=== PATIENT | male | born 1945 | race Caucasian/White ===

== ENCOUNTER 2023-04-20 14:33 | Observation (INO) | payer OTHER ==
--- OUTSIDE RECORDS SUMMARY | 2023-04-20 14:37 | XMS REPORT | Continuity of Care Document ---
:1945 Author Organization [facility] t Address [address] [facility] [address] [place] [address] Care Team Providers Name Role Phone Ching JIMENEZ, Bronson Aguiar Primary Care Physician [phone] Keith JIMENEZ, Mikie Garcia Attending Clinician Payers Payer Name Policy Type Policy Number Effective Date Expiration Date S ource Problems This patient has no known problems. Allergies, Adverse Reactions, Alerts This patient has no known allergies or adverse reactions. Family History Family Member Diagnosis Comments Start Date Stop Date Source Natural father Aneurysm [facility] father Lung cancer [facility] Social History Social Habit Start Date Stop Date Quantity Comments Source History of tobacco Cigarette Smoker [facility] Tobacco use and 2022-04-22 2022-04-22 Smokeless tobacco [facility] exposure 00:[facility]:00 [facility]:00:00 non-user Hospital Alcohol intake 2022-04-22 2022-04-22 Current drinker of [facility] 00:00:00 00:00:00 alcohol (finding) Hospita l History of Social 2022-04-22 2022-04-[address] function 00:00:00 00:00:00 Hospital Alcohol Comment 2022-04-22 2022-04-22 ocasionally [facility] 00:00:00 00:00:00 Hospital Sex Assigned At [birth year] [facility] 00[facility] Smoking Status Start Date Stop Date Source Ex-smoker 2022-04-22 00:00:00 2022-04-22 00:00:00 Method t [facility] Medications Ordered Filled Start Stop Current Ordering Indication Dosage Frequency Signature Comments Components Source Medication Medication Date Date Medication? Clinician (SIG) Name Name aspirin 2021-06 No 81mg QD Take 1 [facility] (ECOTRIN) 15 15 tablet (81 st 81 MG 10:57: 00:00 mg total) [facility] 21 :00 by mouth l coated daily. tablet aspirin 2021-06 No 81mg QD Take 1 [facility] (ECOTRIN) 15 15 tablet (81 st 81 MG 10:57: 00:00 mg total) Hospit [facility] 21 :00 by mouth l coated daily. tablet aspirin 2021-06 No 81mg QD Take 1 [facility] (ECOTRIN) 07-0515 tablet (81 st 81 MG 10:57: 00:00 mg total) [facility] 21 :00 by mouth l coated daily. tablet aspirin 2021-06 No 81mg QD Take 1 [facility] (ECOTRIN) 07-0515 tablet (81 st 81 MG 10:57: 00:00 mg total) Hospit [facility] 21 :00 by mouth l coated daily. tablet aspirin 2021-06 No 81mg QD Take 1 [facility] (ECOTRIN) 07-0515 tablet (81 st 81 MG 10:57: 00:00 mg total) Hospit [facility] 21 :00 by mouth l coated daily. tablet aspirin 2021-06 No 81mg QD Take 1 [facility] (ECOTRIN) 07-0515 tablet (81 st 81 MG 10:57: 00:00 mg total) Hospit [facility] 21 :00 by mouth l coated daily. tablet aspirin 2021-06 No 81mg QD Take 1 [facility] (ECOTRIN) 15 -15 tablet (81 st 81 MG 10:57: 00:00 mg total) Hospit [facility] 21 :00 by mouth l coated daily. tablet simvastatin 2021-06 Yes 40mg QD Take 1 Meth am[facility] (ZOCOR) 40 -02 tablet (40 st mg tablet 11:14: mg total) Hos jonathan 10 by mouth l nightly. folic acid 2021-06 Yes 800ug QD Take 2 [facility] (FOLVITE) 1-[address] 400 MCG 11:14: (800 mcg Hospit a tablet 10 total) by l mouth daily. omega 2021-06 Yes 1000mg QD Take 1,000 [facility] 3-dha-epa-f 1-[address] issa oil 11:14: mouth Hospita (Fish OiL) 10 daily. l 1,000 mg (120 mg-180 mg) capsule simvastatin 2021-06 Yes 40mg QD Take 1 [facility] (ZOCOR) 40 1-02 tablet (40 st mg tablet 11:14: mg total) Hos jonathan 10 by mouth l nightly. folic acid 2021-06 Yes 800ug QD Take 2 [facility] (FOLVITE) 1-[address] 400 MCG 11:14: (800 mcg Hospit a tablet 10 total) by l mouth daily. omega 2021-06 Yes 1000mg QD Take 1,000 Meth [facility] 3-dha-epa-f 1-[address] issa oil 11:14: mouth Hospita (Fish OiL) 10 daily. l 1,000 mg (120 mg-180 mg) capsule simvastatin 2021-06 Yes 40mg QD Take 1 [facility] (ZOCOR) 40 1-02 tablet (40 st mg tablet 11:14: mg total) Hos jonathan 10 by mouth l nightly. folic acid 2021-06 Yes 800ug QD Take 2 Meth [facility] (FOLVITE) 1-[address] 400 MCG 11:14: (800 mcg Hospit a tablet 10 total) by l mouth daily. omega 2021-06 Yes 1000mg QD Take 1,000 Meth amelia 3-dha-epa-f 1-[address] issa oil 11:14: mouth Hospita (Fish OiL) 10 daily. l 1,000 mg (120 mg-180 mg) capsule simvastatin 2021-06 Yes 40mg QD Take 1 Meth am[facility] (ZOCOR) 40 1-02 tablet (40 st mg tablet 11:14: mg total) Hos jonathan 10 by mouth l nightly. folic acid 2021-06 Yes 800ug QD Take 2 Meth [facility] (FOLVITE) 1-[address] 400 MCG 11:14: (800 mcg Hospit a tablet 10 total) by l mouth daily. omega 2021-06 Yes 1000mg QD Take 1,000 Meth amelia 3-dha-epa-f 1-[address] issa oil 11:14: mouth Hospita (Fish OiL) 10 daily. l 1,000 mg (120 mg-180 mg) capsule simvastatin 2021-06 Yes 40mg QD Take 1 [facility] (ZOCOR) 40 1-02 tablet (40 st mg tablet 11:14: mg total) Hos jonathan 10 by mouth l nightly. folic acid 2021-06 Yes 800ug QD Take 2 Meth am[facility] (FOLVITE) 1-[address] 400 MCG 11:14: (800 mcg Hospit a tablet 10 total) by l mouth daily. omega 2021-06 Yes 1000mg QD Take 1,000 Meth amelia 3-dha-epa-f 1-[address] issa oil 11:14: mouth Hospita (Fish OiL) 10 daily. l 1,000 mg (120 mg-180 mg) capsule simvastatin 2021-06 Yes 40mg QD Take 1 Meth amelia (ZOCOR) 40 1-02 tablet (40 st mg tablet 11:14: mg total) Hos jonathan 10 by mouth l nightly. folic acid 2021-06 Yes 800ug QD Take 2 Meth amelia (FOLVITE) 1-[address] 400 MCG 11:14: (800 mcg Hospit a tablet 10 total) by l mouth daily. omega 2021-06 Yes 1000mg QD Take 1,000 Meth amelia 3-dha-epa-f 1-[address] issa oil 11:14: mouth Hospita (Fish OiL) 10 daily. l 1,000 mg (120 mg-180 mg) capsule simvastatin 2021-06 Yes 40mg QD Take 1 Meth amelia (ZOCOR) 40 1-02 tablet (40 st mg tablet 11:14: mg total) Hos jonathan 10 by mouth l nightly. folic acid 2021-06 Yes 800ug QD Take 2 Meth am[facility] (FOLVITE) 1-[address] 400 MCG 11:14: (800 mcg Hospit a tablet 10 total) by l mouth daily. omega 2021-06 Yes 1000mg QD Take 1,000 Meth amelia 3-dha-epa-f 1-[address] issa oil 11:14: mouth Hospita (Fish OiL) 10 daily. l 1,000 mg (120 mg-180 mg) capsule losartan-hy 2021-06 Yes 1{tbl} QD 1 tablet [facility] drochloroth 0-[address] iazide 00:00: Hospita (HYZAAR) 00 l 100-25 mg per tablet losartan-hy 2021-06 Yes 1{tbl} QD 1 tablet [facility] drochloroth 0-[address] iazide 00:00: Hospita (HYZAAR) 00 l 100-25 mg per tablet losartan-hy 2021-06 Yes 1{tbl} QD 1 tablet [facility] drochloroth 0-[address] iazide 00:00: Hospita (HYZAAR) 00 l 100-25 mg per tablet losartan-hy 2021-06 Yes 1{tbl} QD 1 tablet [facility] drochloroth 0-[address] iazide 00:00: Hospita (HYZAAR) 00 l 100-25 mg per tablet losartan-hy 2021-06 Yes 1{tbl} QD 1 tablet [facility] drochloroth 0-[address] iazide 00:00: Hospita (HYZAAR) 00 l 100-25 mg per tablet losartan-hy 2021-06 Yes 1{tbl} QD 1 tablet [facility] drochloroth 0-[address] iazide 00:00: Hospita (HYZAAR) 00 l 100-25 mg per tablet losartan-hy 2021-06 Yes 1{tbl} QD 1 tablet [facility] drochloroth 0-[address] iazide 00:00: Hospita (HYZAAR) 00 l 100-25 mg per tablet metoprolol 2022-0 Yes 50mg QD 1 tablet Met hodi tartrate 9-13 ([address] (LOPRESSOR) 00:00: total) Hosp sandi 50 mg 00 daily. l tablet metoprolol 2022-0 Yes 50mg QD 1 tablet Met hodi tartrate 9-13 ([address] (LOPRESSOR) 00:00: total) Hosp sandi 50 mg 00 daily. l tablet metoprolol 2022-0 Yes 50mg QD 1 tablet Met hodi tartrate 9-13 ([address] (LOPRESSOR) 00:00: total) Hosp sandi 50 mg 00 daily. l tablet metoprolol 2022-0 Yes 50mg QD 1 tablet Met hodi tartrate 9-13 ([address] (LOPRESSOR) 00:00: total) [facility]osp [facility]i 50 mg 00 daily. l tablet metoprolol 2-0 Yes 50mg QD 1 tablet Met hodi tartrate 9-13 ([address] (LOPRESSOR) 00:00: total) [facility]osp [facility]i 50 mg 00 daily. l tablet metoprolol 2022-0 Yes 50mg QD 1 tablet Met hodi tartrate 9-13 ([address] (LOPRESSOR) 00:00: total) Hosp [facility]i 50 mg 00 daily. l tablet metoprolol 2022-0 Yes 50mg QD 1 tablet Met hodi tartrate 9-13 ([address] (LOPRESSOR) 00:00: total) Hosp sandi 50 mg 00 daily. l tablet Vital Signs Vital Name Observation Time Observation Value Comments Source Systolic blood 2022-04-22 19:51:00 148 mm[Hg] [facility] pressure Diastolic blood 2022-04-22 19:51:00 71 mm[Hg] [facility] pressure Heart rate 2022-04-22 19:51:00 80 /min [facility] Body height 2022-04-22 16:09:00 177.8 cm [facility] Body weight 2022-04-22 16:09:00 94.348 kg [facility] BMI 2022-04-22 16:09:00 29.84 kg/m2 [facility] Oxygen saturation in 2022-04-22 16:09:00 96 /min [facility] Arterial blood by Pulse oximetry Procedures Procedure Date / Time Performed Performing Clinician Sour e TTE COMPLETE, WO 2022-04-22 20:00:00 [facility] CONTRAST, W DOPPLER ([id number]) ECG 12-LEAD 2022-04-22 16:26:33 [facility] Plan of Care Planned Activity Planned Date Details Comments Source Future Scheduled 2023-04-18 COVID-19 VACCINE (#1) [facility] Test 11:21:50 [code = COVID-19 VACCINE (#1)] Future Scheduled 2023-04-18 65+ PNEUMOCOCCAL [facility] Test 11:21:50 VACCINE (1 - PCV) [code = 65+ PNEUMOCOCCAL VACCINE (1 - PCV)] Future Scheduled 2023-04-18 Hepatitis C screening [facility] Test 11:21:50 (procedure) [code = 725863146] Future Scheduled 2023-04-18 SHINGLES VACCINES (1 Met [facility] Test 11:21:50 of 2) [code = SHINGLES VACCINES (1 of 2)] Future Scheduled 2023-04-18 INFLUENZA VACCINE (#1) [facility] Test 11:21:50 [code = INFLUENZA VACCINE (#1)] Future Scheduled 2023-04-04 COVID-19 VACCINE (#1) [facility] Test 15:27:53 [code = COVID-19 VACCINE (#1)] Future Scheduled 2023-04-04 65+ PNEUMOCOCCAL [facility] Test 15:27:53 VACCINE (1 - PCV) [code = 65+ PNEUMOCOCCAL VACCINE (1 - PCV)] Future Scheduled 2023-04-04 Hepatitis C screening [facility] Test 15:27:53 (procedure) [code = 855975888] Future Scheduled 2023-04-04 SHINGLES VACCINES (1 Met [facility] Test 15:27:53 of 2) [code = SHINGLES VACCINES (1 of 2)] Future Scheduled 2023-04-04 RSV VACCINES > 60 YR Met [facility] Test 15:27:53 (1 - 1-dose 60+ series) [code = RSV VACCINES > 60 YR (1 - 1-dose 60+ series)] Future Scheduled 2023-04-04 INFLUENZA VACCINE (#1) [facility] Test 15:27:53 [code = INFLUENZA VACCINE (#1)] Future Scheduled 2022-07-06 COVID-19 VACCINE (#1) [facility] Test 16:55:36 [code = COVID-19 VACCINE (#1)] Future Scheduled 2022-07-06 Hepatitis C screening [facility] Test 16:55:36 (procedure) [code = [id number]] Future Scheduled 2022-07-06 SHINGLES VACCINES (1 Met [facility] Test 16:55:36 of 2) [code = SHINGLES VACCINES (1 of 2)] Future Scheduled 2022-07-06 65+ PNEUMOCOCCAL [facility] Test 16:55:36 VACCINE (1 - PCV) [code = 65+ PNEUMOCOCCAL VACCINE (1 - PCV)] Future Scheduled 2022-07-06 INFLUENZA VACCINE Method [facility] Test 16:55:36 [code = INFLUENZA VACCINE] Future Scheduled 2022-06-25 COVID-19 VACCINE (#1) [facility] Test 11:57:11 [code = COVID-19 VACCINE (#1)] Future Scheduled 2022-06-25 [facility] Test 11:57:11 (procedure) [code = [id number]] Future Scheduled 2022-06-25 SHINGLES VACCINES (1 Met [facility] Test 11:57:11 of 2) [code = SHINGLES VACCINES (1 of 2)] Future Scheduled 2022-06-25 65+ PNEUMOCOCCAL [facility] Test 11:57:11 VACCINE (1 - PCV) [code = 65+ PNEUMOCOCCAL VACCINE (1 - PCV)] Future Scheduled 2022-06-25 INFLUENZA VACCINE [facility] Test 11:57:11 [code = INFLUENZA VACCINE] Future Scheduled 2022-06-25 COVID-19 VACCINE (#[facility]) [facility] Test 11:57:11 [code = COVID-19 VACCINE (#1)] Future Scheduled 2022-06-25 [facility] Test 11:57:11 (procedure) [code = [id number]] Future Scheduled 2022-06-25 SHINGLES VACCINES (1 Met [facility] Test 11:57:11 of 2) [code = SHINGLES VACCINES (1 of 2)] Future Scheduled 2022-06-25 65+ PNEUMOCOCCAL [facility] Test 11:57:11 VACCINE (1 - PCV) [code = 65+ PNEUMOCOCCAL VACCINE (1 - PCV)] Future Scheduled 2022-06-25 INFLUENZA VACCINE Method [facility] Test 11:57:11 [code = INFLUENZA VACCINE] Future Scheduled 2022-06-12 SHINGLES VACCINES (1 Met [facility] Test 08:42:58 of 2) [code = SHINGLES VACCINES (1 of 2)] Future Scheduled 2022-06-12 65+ PNEUMOCOCCAL [facility] Test 08:42:58 VACCINE (1 - PCV) [code = 65+ PNEUMOCOCCAL VACCINE (1 - PCV)] Future Scheduled 2022-06-12 INFLUENZA VACCINE Method ist Hospital Test 08:42:58 [code = INFLUENZA VACCINE] Future Scheduled 2022-06-12 COVID-19 [facility]ACCINE (#[facility]) [facility] Test 08:42:58 [code = COVID-19 VACCINE (#1)] Future Scheduled 2022-06-12 Hepatitis C screening [facility] Test 08:42:58 (procedure) [code = [id number]] Future Scheduled 2022-06-12 SHINGLES VACCINES (1 Met [facility] Test 08:42:58 of 2) [code = SHINGLES VACCINES (1 of 2)] Future Scheduled 2022-06-12 65+ PNEUMOCOCCAL [facility] Test 08:42:58 VACCINE (1 - PCV) [code = 65+ PNEUMOCOCCAL VACCINE (1 - PCV)] Future Scheduled 2022-06-12 INFLUENZA VACCINE Method ist Hospital Test 08:42:58 [code = INFLUENZA VACCINE] Future Scheduled 2022-06-12 COVID-19 VACCINE (#1) [facility] Test 08:42:58 [code = COVID-19 VACCINE (#1)] Future Scheduled 2022-06-12 Hepatitis C screening [facility] Test 08:42:58 (procedure) [code = [id number]] Encounters Start End Encounter Admission Attending Care Care Encounter Source Date/Time Date/Time Type Type Clinicians Facility Department ID 2022-04-22 2022-04-22 Office Parker, 1.2.840.1 [id number] [facility] 11:00:00 12:10:21 Visit Mikie [id number] [facility] 3.430.2.7 Hospit a .3.623633 l .8 2022-04-22 2022-04-22 Office Parker, 1.2.840.1 [id number] [facility] 11:00:00 12:10:21 Visit Mikie [id number] [facility] 3.430.2.7 Hospit a .3.114475 l .8 2022-04-22 2022-04-22 Travel 1.2.840.1 [id number] [facility] 00:00:00 00:00:[address] 3.430.2.7 0.2.7.3.698 Ho spita .3.106073 084.8 l .8 2022-04-22 2022-04-22 Travel 1.2.840.1 [id number] [id number] [facility] 00:00:00 00:00:[address] 3.430.2.7 0.2.7.3.698 Ho spita .3.693827 084.8 l .8 2022-04-22 2022-04-22 Outpatient [facility] [id number] [address] [place] 00:00:00 00:00:[address] MIKIE [address] Results Test Description Test Time Test Comments Results Result Comments Source ECG 12 lead 2022-04-23 08:14:08 Test Item Value Reference Range Interpretation Comme nts Ventricular rate (test code = 253) 76 Atrial rate (test code = 255) 76 AK interval (test code = 266) 218 QRSD interval (test code = 260) 170 QT interval (test code = 264) 446 QTC interval (test code = 265) 501 P axis 1 (test code = 267) 66 QRS axis 1 (test code = 268) -75 T wave axis (test code = 270) 42 EKG impression (test code = 273) Sinus rhythm with 1st degree AV bl ock with frequent premature ventricular complexes-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-^^^ Bifascicular block ^^^- [address]2022-11-03 08:14:08 Test Item Value Reference Range Interpretation Comments Ventricular rate (test code = 253) Atrial rate (test code = 255) AK interval (test code = 266) QRSD interval (test code = 260) QT interval (test code = 264) QTC interval (test code = 265) P axis 1 (test code = 267) QRS axis 1 (test code = 268) T wave axis (test code = 270) EKG impression (test Sinus rhythm with 1st code = 273) degree AV block with frequent premature ventricular complexes-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-^^^ Bifascicular block ^^^- [address]2022-11-03 08:14:08 Test Item Value Reference Range Interpretation Comments Ventricular rate (test code = 253) Atrial rate (test code = 255) AK interval (test code = 266) QRSD interval (test code = 260) QT interval (test code = 264) QTC interval (test code = 265) P axis 1 (test code = 267) QRS axis 1 (test code = 268) T wave axis (test code = 270) EKG impression (test Sinus rhythm with 1st code = 273) degree AV block with frequent premature ventricular complexes-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-^^^ Bifascicular block ^^^- [address]2022-11-03 08:14:08 Test Item Value Reference Range Interpretation Comments Ventricular rate (test code = 253) Atrial rate (test code = 255) AK interval (test code = 266) QRSD interval (test code = 260) QT interval (test code = 264) QTC interval (test code = 265) P axis 1 (test code = 267) QRS axis 1 (test code = 268) T wave axis (test code = 270) EKG impression (test Sinus rhythm with 1st code = 273) degree AV block with frequent premature ventricular complexes-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-^^^ Bifascicular block ^^^- [address]2022-11-03 08:14:08 Test Item Value Reference Range Interpretation Comments Ventricular rate (test code = 253) Atrial rate (test code = 255) AK interval (test code = 266) QRSD interval (test code = 260) QT interval (test code = 264) QTC interval (test code = 265) P axis 1 (test code = 267) QRS axis 1 (test code = 268) T wave axis (test code = 270) EKG impression (test Sinus rhythm with 1st code = 273) degree AV block with frequent premature ventricular complexes-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-^^^ Bifascicular block ^^^- [address]2022-11-03 08:14:08 Test Item Value Reference Range Interpretation Comments Ventricular rate (test code = 253) Atrial rate (test code = 255) AK interval (test code = 266) QRSD interval (test code = 260) QT interval (test code = 264) QTC interval (test code = 265) P axis 1 (test code = 267) QRS axis 1 (test code = 268) T wave axis (test code = 270) EKG impression (test Sinus rhythm with 1st code = 273) degree AV block with frequent premature ventricular complexes-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
[2023-04-20 15:13] LABS: Specific Gravity 1.026 (1.005-1.030); Urine Bacteria None Seen /HPF (<20); Urine Bilirubin NEGATIVE (Negative); Urine Blood 1+ (Negative); Urine Clarity Clear (Clear); Urine Color Light-Yellow (Yellow); Urine Glucose NEGATIVE (Negative); Urine Mucus Slight /HPF (None Seen); Urine Protein 1+ (Negative); Urine RBC <5 /HPF (None Seen); Urine Urobilinogen Normal (Normal); Urine pH 5.5 (5.0-7.0)
[2023-04-20] MEDS ORDERED: KETOROLAC 30 MG/ML INJ ONE (15:24)
[2023-04-20] MEDS ORDERED: NA CHLORIDE 0.9% 250 ML ONE (15:24)
[2023-04-20 15:30] LABS: Absolute Lymphocytes (CBC) 0.5 K/uL (0.7-4.9); Hematocrit 46.9 % (39.6-49.0); Lymphocytes % 3.5 % (15.3-44.8); MCV 88.9 fL (80-100); MPV 8.1 fL (7.6-11.3); Platelets 209 thou/uL (152-406); RBC Red Blood Cell Count 5.27 M/uL (4.33-5.43)
[2023-04-20 15:55] LABS: Bilirubin Total 0.6 mg/dL (0.2-1.0); Potassium 3.9 mEq/L (3.5-5.1); Protein, Total 8.1 g/dL (6.4-8.2)
[2023-04-20 15:57] LABS: Blood Morphology Comment NOT SEEN (NOT SEEN); Platelet Estimate ADEQ; White Blood Cell Scan OK (OK)
--- NOTE | 2023-04-20 16:13 | RAD REPORT ---
EXAM DESCRIPTION: CT - Stone Protocol - 04/20/2023 3:13 pm CLINICAL HISTORY: FLANK PAIN COMPARISON: No comparisons TECHNIQUE: CT imaging of the abdomen and pelvis was performed without IV contrast. Multiplanar refor mats were generated and reviewed. All CT scans are performed using dose optimization technique as appropriate and may include automated exposure control or mA/KV adjustment according to patient size. FINDINGS: No suspicious findings in the lung bases. The liver, spleen and pancreas show no suspicious findings. Gallbladder shows a 7 millimeter calculus near the neck. Mild left hydronephrosis, with a 7 millimeter left pelviureteric junction calculus, likely resulting in obstruction. Multiple other nonobstructing left renal calculi the largest measuring 11 millimeter at the left lower pole. Nonobstructing right upper pole 7 millimeter calculus. No suspicious renal ma ss. No significant adrenal finding. Isodense masses and pyelonephritis cannot be excluded in the abs ence of IV contrast. No dilated bowel loops or bowel wall thickening. No free air, free fluid or inflammatory stranding. L eft hiatal hernia containing fat No suspicious mass or bulky lymphadenopathy. 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 The urinary bladder is decompressed limiting evaluation. No suspicious bony findings. IMPRESSION: Left pelviureteric junction 7 millimeter calculus, results in mild left hydronephrosis. Other nonobstructive calculi bilaterally as above. Cholelithiasis. 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 The findings were communicated to Cristina Hanna on 04/20/2023 at 16:08 hours.
[2023-04-20] MEDS ORDERED: NA CHLORIDE 0.9% 500 ML ONE (16:26)
--- NOTE | 2023-04-20 16:44 | ER ---
Nurse's Notes [facility] Name: Raudel Schaeffer Age: 77 yrs Sex: Male : 1945 Arrival Date: 04/20/2023 Time: 14:33 Bed 20 Private MD: Diagnosis: Hydronephrosis with renal and ureteral calculous obstruction;Leukocytosis;left flank pain Presentation: 04/20 14:49 Chief complaint: Left flank pain and nausea since this morning. Pt also c/o hb constipation, has had his normal daily BMs every day except for today. Coronavirus screen: At this time, the client does not indicate any symptoms associated with coronavirus-19. Ebola Screen: No symptoms or risks identified at this time. Initial Sepsis Screen: Does the patient meet any 2 criteria? No. Patient's initial sepsis screen is negative. Does the patient have a suspected source of infection? No. Patient's initial sepsis screen is negative. Risk Assessment: Do you want to hurt yourself or someone else? Patient reports no desire to harm self or others. Onset of symptoms was April 20, 2023. 14:49 Method Of Arrival: Ambulatory hb 14:49 Acuity: AVI 3 hb Historical: - Allergies: 14:51 No Known Allergies; hb - Immunization history:: Adult Immunizations up to date. - Social history:: Smoking status: Patient denies any tobacco usage or history of. Screenin:47 [facility] ED Fall Risk Assessment (Adult) History of falling in the last 3 months, mb9 including since admission No falls in past 3 months (0 pts) Confusion or Disorientation No (0 pts) Intoxicated or Sedated No (0 pts) Impaired Gait No (0 pts) Mobility Assist Device Used No (0 pt) Altered Elimination No (0 pt) Score/Fall Risk Level 0 - 2 = Low Risk Oriented to surroundings, Maintained a safe environment, Educated pt \T\ family on fall prevention, incl call for assistance when getting out of bed. Abuse screen: Denies threats or abuse. Nutritional screening: No deficits noted. Tuberculosis screening: No symptoms or risk factors identified. Assessment: 14:56 General: Appears in no apparent distress. Behavior is calm, cooperative. Pain: mb9 Complains of pain in back Pain radiates to left flank Pain currently is 6 out of 10 on a pain scale. Quality of pain is described as throbbing, Pain began suddenly, Is continuous. Neuro: Jacob Agitation-Sedation Scale (RASS): 0 - Alert and Calm Level of Consciousness is awake, alert, obeys commands, Oriented to person, place, time, situation, Appropriate for age. Cardiovascular: Heart tones S1 S2 present Patient's skin is warm and dry. Respiratory: Airway is patent Respiratory effort is even, unlabored, Respiratory pattern is regular, symmetrical, Breath sounds are clear bilaterally. GI: Abdomen is round non-distended, Bowel sounds present X 4 quads. Abd is soft and non tender X 4 quads. Reports constipation, Patient currently denies diarrhea, nausea, vomiting. : Denies burning with urination, urinary frequency, urgency. EENT: No signs and/or symptoms were reported regarding the EENT system. Derm: Skin is pink, warm \T\ dry. Musculoskeletal: Range of motion: intact in all extremities. 16:15 Reassessment: Patient and/or family updated on plan of care and expected duration. Pain mb9 level reassessed. Patient is alert, oriented x 3, equal unlabored respirations, skin warm/dry/pink. Patient denies pain at this time. Patient states feeling better. 17:30 Reassessment: No changes from previously documented assessment. Patient and/or family mb9 updated on plan of care and expected duration. Pain level reassessed. Patient is alert, oriented x 3, equal unlabored respirations, skin warm/dry/pink. 18:36 Reassessment: No changes from previously documented assessment. Patient and/or family mb9 updated on plan of care and expected duration. Pain level reassessed. Patient is alert, oriented x 3, equal unlabored respirations, skin warm/dry/pink. Patient denies pain at this time. Patient states feeling better. Vital Signs: 14:49 BP 148 / 105; Pulse 79; Resp 16; Temp 98(TE); Pulse Ox 98% on R/A; Weight 93.44 kg; hb Height 5 ft. 10 in. ; Pain 8/10; 15:25 BP 134 / 79; Pulse 74; Resp 17; Pulse Ox 99% on R/A; mb9 16:28 BP 114 / 70; Pulse 69; Resp 18; Pulse Ox 98% on R/A; mb9 18:36 BP 123 / 62; Pulse 70; Resp 18; Pulse Ox 99% on R/A; mb9 14:49 Body Mass Index 29.56 (93.44 kg, 177.8 cm) hb 14:49 Pain Scale: Adult hb ED Course: 14:37 Patient arrived in ED. kj1 14:44 [facility]C [facility] snw 14:44 Amauri Fleming MD is Attending Physician. snw 14:46 Asiya Pickering, DAYAN is Primary Nurse. mb9 14:46 Arm band placed on. mb9 14:51 Triage completed. hb 14:56 Placed in gown. Bed in low position. Call light in reach. Side rails up X 1. Client mb9 placed on continuous cardiac and pulse oximetry monitoring. NIBP monitoring applied. 14:57 No provider procedures requiring assistance completed. mb9 15:09 Urine W/Microscopic (UAM) Sent. mb9 15:13 CT Stone Protocol In Process Unspecified. EDMS 15:25 CMP Sent. mb9 15:25 CBC with Diff Sent. mb9 16:28 Blood Culture Adult (2) Sent. mb9 16:28 Procalcitonin Sent. mb9 16:42 Adebayo Morejon MD is Hospitalizing Provider. snw 17:26 Jose Francois is Hospitalizing Provider. snw 18:37 Patient admitted, IV remains in place. mb9 Administered Medications: 15:25 Drug: NS 0.9% IV 250 ml IV at 75 ml/hr once Route: IV; Rate: 75 ml/hr; Site: left mb9 antecubital; 18:37 Follow up: Response: No adverse reaction; IV Status: Completed infusion mb9 15:25 Drug: Ketorolac IVP 15 mg IVP once Route: IVP; Site: left antecubital; mb9 16:28 Follow up: Response: No adverse reaction mb9 16:28 Drug: NS 0.9% IV 500 ml IV at bolus once Route: IV; Rate: bolus; Site: left antecubital;mb9 18:37 Follow up: Response: No adverse reaction; IV Status: Completed infusion mb9 16:40 Drug: Piperacillin-Tazobactam IVPB 3.375 grams IVPB once over 60 mins; (mix in NS 100 mb9 mL) Route: IVPB; Infused Over: 60 mins; Site: left antecubital; 18:37 Follow up: Response: No adverse reaction; IV Status: Completed infusion mb9 Medication: 14:56 VIS not applicable for this client. mb9 Outcome: 16:43 Decision to Hospitalize by Provider. snw 21:07 Admitted to Med/surg accompanied by tech, via wheelchair, room 216, Report called to nw1 HS 21:07 Condition: stable 21:07 Instructed on the need for admit, 21:07 Patient left the ED. nw1 Signatures: Dispatcher [employer] EDCristina Campbell, INDUSTRIAL GAS SERVICER HELPER-C INDUSTRIAL GAS SERVICER HELPER-Csnw Viji Kan, RN RN Julieth Rick kj1 Asiya Pickering RN RN mb9 Iris Serrano RN RN nw1
--- NOTE | 2023-04-20 16:44 | EDPHYS ---
Physician Documentation [facility] Name: Raudel Schaeffer Age: 77 yrs Sex: Male : 1945 Arrival Date: 04/20/2023 Time: 14:33 Bed 20 Private MD: ED Physician Amauri Fleming HPI: 04/20 17:28 This 77 yrs old Male presents to ER via Ambulatory with complaints of Flank Pain. snw 17:28 The patient complains of pain in the left mid back. The pain radiates to the left lower snw quadrant. Onset: The symptoms/episode began/occurred suddenly, 0300 am. Associated signs and symptoms: Pertinent positives: nausea. Severity of pain: At its worst the pain was moderate severe in the emergency department the pain has improved mildly. The patient has not experienced similar symptoms in the past. The patient has not recently seen a physician, sees Dr. Heath. Historical: - Allergies: 14:51 No Known Allergies; hb - Immunization history:: Adult Immunizations up to date. - Social history:: Smoking status: Patient denies any tobacco usage or history of. ROS: 16:44 Constitutional: Negative for fever, chills, and weight loss, Eyes: Negative for injury, snw pain, redness, and discharge, ENT: Negative for injury, pain, and discharge, Neck: Negative for injury, pain, and swelling, Cardiovascular: Negative for chest pain, palpitations, and edema, Respiratory: Negative for shortness of breath, cough, wheezing, and pleuritic chest pain, Back: Negative for injury and pain, 16:44 MS/Extremity: Negative for injury and deformity, Skin: Negative for injury, rash, and discoloration, Neuro: Negative for headache, weakness, numbness, tingling, and seizure, Psych: Negative for depression, anxiety, suicide ideation, homicidal ideation, and hallucinations, 16:44 Abdomen/GI: Positive for abdominal pain, left flank pain beginning at 0300, + nausea, Exam: 15:27 Constitutional: This is a well developed, well nourished patient who is awake, alert, snw and in no acute distress. Head/Face: Normocephalic, atraumatic. Eyes: Pupils equal round and reactive to light, extra-ocular motions intact. Lids and lashes normal. Conjunctiva and sclera are non-icteric and not injected. Cornea within normal limits. Periorbital areas with no swelling, redness, or edema. ENT: Nares patent. No nasal discharge, no septal abnormalities noted. Tympanic membranes are normal and external auditory canals are clear. Oropharynx with no redness, swelling, or masses, exudates, or evidence of obstruction, uvula midline. Mucous membranes moist. Neck: Trachea midline, no thyromegaly or masses palpated, and no cervical lymphadenopathy. Supple, full range of motion without nuchal rigidity, or vertebral point tenderness. No Meningismus. Chest/axilla: Normal chest wall appearance and motion. Nontender with no deformity. No lesions are appreciated. Cardiovascular: Regular rate and rhythm with a normal S1 and S2. No gallops, murmurs, or rubs. Normal PMI, no JVD. No pulse deficits. Respiratory: Lungs have equal breath sounds bilaterally, clear to auscultation and percussion. No rales, rhonchi or wheezes noted. No increased work of breathing, no retractions or nasal flaring. Back: No spinal tenderness. No costovertebral tenderness. Full range of motion. Skin: Warm, dry with normal turgor. Normal color with no rashes, no lesions, and no evidence of cellulitis. MS/ Extremity: Pulses equal, no cyanosis. Neurovascular intact. Full, normal range of motion. Neuro: Awake and alert, GCS 15, oriented to person, place, time, and situation. Cranial nerves II-XII grossly intact. Motor strength 5/5 in all extremities. Sensory grossly intact. Cerebellar exam normal. Normal gait. Psych: Awake, alert, with orientation to person, place and time. Behavior, mood, and affect are within normal limits. 15:27 Abdomen/GI: Inspection: abdomen appears normal, Bowel sounds: normal, Palpation: mild abdominal tenderness, in the left lower quadrant, Vital Signs: 14:49 BP 148 / 105; Pulse 79; Resp 16; Temp 98(TE); Pulse Ox 98% on R/A; Weight 93.44 kg; hb Height 5 ft. 10 in. ; Pain 8/10; 15:25 BP 134 / 79; Pulse 74; Resp 17; Pulse Ox 99% on R/A; mb9 16:28 BP 114 / 70; Pulse 69; Resp 18; Pulse Ox 98% on R/A; mb9 18:36 BP 123 / 62; Pulse 70; Resp 18; Pulse Ox 99% on R/A; mb9 14:49 Body Mass Index 29.56 (93.44 kg, 177.8 cm) hb 14:49 Pain Scale: Adult hb MDM: 14:50 Patient medically screened. snw 16:26 Data reviewed: vital signs, nurses notes, lab test result(s), radiologic studies. snw Management of patient was discussed with the following: Contact Lens Technician: Dr Johansen does not anticipate need for intervention but I will admit for IV abx to Hospitalist program. Counseling: I had a detailed discussion with the patient and/or guardian regarding the need for further work-up and treatment in the hospital. Response to treatment: the patient's symptoms have markedly improved after treatment. 16:44 Management of patient was discussed with the following: Hospitalist: Dr. Jean-Pierre Kwon, [facility]. Discussion of test interpretation with radiology: I had a discussion with radiology regarding a test interpretation. Discussion of test interpretation with radiology: I had a discussion with radiology regarding a test interpretation. CT + 7mm stone with mild hydronephrosis. 04/20 14:55 Order name: Urine W/Microscopic (UAM); Complete Time: 15:26 snw 04/20 15:04 Order name: CBC with Diff; Complete Time: 15:58 snw 04/20 15:04 Order name: CMP; Complete Time: 15:57 snw 04/20 15:35 Order name: CBC Smear Scan; Complete Time: 15:58 EDMS 04/20 16:09 Order name: Blood Culture Adult (2) snw 04/20 16:10 Order name: Procalcitonin; Complete Time: 17:59 snw 04/20 16:10 Order name: Lactate w/ 2H reflex if indic.; Complete Time: 17:02 snw 04/20 14:55 Order name: CT Stone Protocol; Complete Time: 16:18 snw 04/20 17:07 Order name: CONS Physician Consult EDMS 04/20 15:25 Order name: IV Start; Complete Time: 15:25 mb9 Administered Medications: 15:25 Drug: NS 0.9% IV 250 ml IV at 75 ml/hr once Route: IV; Rate: 75 ml/hr; Site: left mb9 antecubital; 18:37 Follow up: Response: No adverse reaction; IV Status: Completed infusion mb9 15:25 Drug: Ketorolac IVP 15 mg IVP once Route: IVP; Site: left antecubital; mb9 16:28 Follow up: Response: No adverse reaction mb9 16:28 Drug: NS 0.9% IV 500 ml IV at bolus once Route: IV; Rate: bolus; Site: left antecubital;mb9 18:37 Follow up: Response: No adverse reaction; IV Status: Completed infusion mb9 16:40 Drug: Piperacillin-Tazobactam IVPB 3.375 grams IVPB once over 60 mins; (mix in NS 100 mb9 mL) Route: IVPB; Infused Over: 60 mins; Site: left antecubital; 18:37 Follow up: Response: No adverse reaction; IV Status: Completed infusion mb9 Disposition Summary: 04/20/23 16:43 Hospitalization Ordered Notes: Hospitalization Status: Observation snw Location: Telemetry/MedSurg (observation) snw Condition: Stable snw Problem: new snw Symptoms: have improved snw Bed/Room Type: Standard snw Provider: Jose Francois(04/20/23 17:26) snw Room Assignment: 216(04/20/23 18:31) bd Diagnosis - Hydronephrosis with renal and ureteral calculous obstruction snw - Leukocytosis snw - left flank pain snw Forms: - Medication Reconciliation Form snw - SBAR form snw - Leadership Thank You Letter snw Addendum: 04/23/2023 06:59 Co-signature as Attending Physician, Amauri Fleming MD I reviewed the patient's care r n provided by the Advanced Practice Provider and agree with the diagnosis and treatment plan. Signatures: Dispatcher [employer] EDMS Jessie Leigh Shelly, OPEN HEARTH HELPER-C OPEN HEARTH HELPER-Csnw Amauri Fleming MD MD rn Baxter, Heather, RN RN hb Breneman, Mary Beth, RN RN mb9 Corrections: (The following items were deleted from the chart) 04/20 17:26 16:43 Adebayo Morejon snw snw 18: 16:43 snw bd
[2023-04-20] MEDS ORDERED: NA CHLORIDE 0.9% 100 ML ONE (16:46)
[2023-04-20] MEDS ORDERED: PIPERACIL/TAZO 3.375 GM VIAL IV ONE (16:47)
--- NOTE | 2023-04-20 17:09 | P.HP ---
Certification for Inpatient Patient admitted to: Inpatient With expected LOS: <2 Midnights Patient will require the following post-hospital care: None Practitioner: I am a practitioner with admitting privileges, knowledge of patient current condition, hospital course, and medical plan of care. Services: Services provided to patient in accordance with Admission requirements found in Title 42 Section 412.3 of the Code of Federal Regulations Patient History Date of Service: 04/20/23 Reason for admission: Flank pain History of Present Illness: 77-year-old male with a past medical history of hypertension, hyperlipidemia, kidney stones, urinary tract infection, presents to the emergency room with leg of left flank pain that started today. He reports left flank pain is 6 out of 10 and is constant. He reports history of kidney stones in the 1980s. He reports incidental finding of a urinary tract infection previously. He denies dysuria, hematuria, abdominal pain. Nausea vomiting diarrhea. Plan to admit for - Hydronephrosis with renal and ureteral calculous obstruction, Leukocytosis, left flank pain. Case discussed with Dr. Johansen with the ER physician prior to admission. Laboratory evaluation leukocytosis 14.80, early left shift 89.5, mild hyponatremia 135, acute kidney injury, unknown baseline BUN 22 creatinine 1.33, UA negative for urinary tract infection. CT of the abdomen pelvis IMPRESSION: Left pelviureteric junction 7 millimeter calculus, results in mild left hydronephrosis. 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 Allergies No Known Allergies Allergy (Unverified 04/20/23 17:55) - Past Medical/Surgical History -: Kidney stones -: Hypertension -: Hyperlipidemia -: Urinary tract infections Past Surgical History: Patient denies surgical history Psychosocial/ Personal History: - Social History Smoking Status: Former smoker Alcohol use: No CD- Drugs: No Caffeine use: Yes Place of Residence: Home Review of Systems 10-point ROS is otherwise unremarkable Physical Examination - Physical Exam General: Alert, In no apparent distress, Oriented x3 HEENT: Atraumatic, Normocephalic, PERRLA Neck: Supple, 2+ carotid pulse no bruit, JVD not distended Respiratory: Clear to auscultation bilaterally, Normal air movement Cardiovascular: No edema, Normal pulses, Regular rate/rhythm Capillary refill: <2 Seconds Gastrointestinal: Normal bowel sounds, Soft and benign, Other (Left flank tenderness) Musculoskeletal: No clubbing, No swelling Integumentary: No rashes, No breakdown Neurological: Normal gait, Normal speech, Normal strength at 5/5 x4 extr - Studies Laboratory Data (last 24 hrs) 04/20/23 04/20/23 15:20 15:20 WBC 14.80 H Hgb 16.1 Hct 46.9 Plt Count 209 Sodium 135 L Potassium 3.9 BUN 22 H Creatinine 1.33 H Glucose 129 H Total Bilirubin 0.6 AST 28 ALT 36 Alkaline Phosphatase 69 Assessment and Plan - Plan Assessment plan Hydronephrosis with renal and ureteral calculous obstruction Leukocytosis, left flank pain. Case discussed with Dr. Johansen with the ER physician prior to admission. Laboratory evaluation leukocytosis 14.80, early left shift 89.5, mild hyponatremia 135, acute kidney injury, unknown baseline BUN 22 creatinine 1.33, UA negative for urinary tract Urology consult, as needed analgesics, IV fluids, cefepime, strain urine CT of the abdomen pelvis IMPRESSION: Left pelviureteric junction 7 millimeter calculus, results in mild left hydronephrosis. 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 after midnight Full code DVT heparin Discharge Plan: Home Plan to discharge in: 48 Hours - Advance Directives Does patient have a Living Will: No Does patient have a Durable POA for Healthcare: No - Code Status/Comfort Care Code Status: Full Code Physician Review: Patient Assessed, Agree with Above Assessment and Plan Critical Care: No Time Spent Managing Pts Care (In Minutes): 50
[2023-04-20] MEDS ORDERED: MORPHINE 4 MG/ML SYR IV PRN (21:09)
[2023-04-20] MEDS ORDERED: ONDANSETRON 4 MG/2 ML VIAL IV PRN (21:09)
[2023-04-20] MEDS ORDERED: ALPRAZOLAM 0.25 MG TABLET PO PRN (21:09)
[2023-04-20 21:16] VITALS: BMI 30.6
[2023-04-20] MEDS: NA CHLORIDE 0.9% 1,000 ML IV SCH (22:51)
[2023-04-21 01:43] VITALS: O2SAT 96
[2023-04-21 06:39] LABS: Absolute Lymphocytes (CBC) 1.4 K/uL (0.7-4.9); Hematocrit 38.6 % (39.6-49.0); Lymphocytes % 13.8 % (15.3-44.8); MCV 89.2 fL (80-100); MPV 8.4 fL (7.6-11.3); Platelets 170 thou/uL (152-406); RBC Red Blood Cell Count 4.33 M/uL (4.33-5.43)
[2023-04-21 06:51] LABS: Magnesium 2.1 mg/dL (1.6-2.4); Potassium 3.3 mEq/L (3.5-5.1)
[2023-04-21] MEDS ORDERED: NA CHLORIDE 0.9% 100 ML ONE (08:55)
[2023-04-21] MEDS ORDERED: CEFEPIME 1 GM in NA CHLORIDE 0.9% 100 ML IV SCH (09:00)
[2023-04-21] MEDS ORDERED: KCL 20 MEQ/100 mL IVPB 20 MEQ/100 ML BAG IV SCH (09:00)
[2023-04-21] MEDS: NA CHLORIDE 0.9% 1,000 ML IV SCH (09:10)
[2023-04-21] MEDS ORDERED: CEFEPIME 1 GM/VIAL ONE (09:11)
--- NOTE | 2023-04-21 09:39 | P.DS ---
Admission Date: 04/20/23 Discharge Date: 04/21/23 Disposition: ROUTINE DISCHARGE Discharge Condition: FAIR Reason for Admission: Flank pain - Problems (1) Nephrolithiasis Current Visit: Yes Status: Acute (2) Hydronephrosis Current Visit: Yes Status: Acute (3) Chronic kidney disease, stage III (moderate) Current Visit: Yes Status: Acute Brief History of Present Illness: 77-year-old male with a past medical history of hypertension, hyperlipidemia, kidney stones, urinary tract infection, presented to the emergency room with left flank pain. He reports left flank pain is 6 out of 10 and is constant. He reports history of kidney stones in the 1980s. He reports incidental finding of a urinary tract infection previously. He denied dysuria, hematuria, abdominal pain. Nausea vomiting diarrhea. CT of the abdomen pelvis IMPRESSION: Left pelviureteric junction 7 millimeter calculus, results in mild left hydronephrosis. Other nonobstructive calculi bilaterally as above.Cholelithiasis. 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 Case discussed with Dr. Johansen with the ER physician prior to admission. Laboratory evaluation leukocytosis 14.80, early left shift 89.5, mild hyponatremia 135, unknown baseline BUN 22 creatinine 1.33, UA negative for urinary tract infection. Patient was admitted for further management. Hospital Course: Patient hospitalized and treated with supportive measures including IV hydration and analgesics as needed. UA did not suggest UTI. Patient was asymptomatic during the hospital stay. Vitals were stable. Flank pain resolved. He had mild leukocytosis which resolved. Case was discussed with urology Dr. Johansen who recommended outpatient follow-up in the office. Patient is deemed c linically stable for discharge. Vital Signs/Physical Exam: Temp Pulse Resp BP Pulse Ox 97.6 F 67 17 116/68 97 04/21/23 08:00 04/21/23 08:00 04/21/23 08:00 04/21/23 08:00 04/21/23 08:00 General: Alert, In no apparent distress, Oriented x3 HEENT: Mucous membr. moist/pink Neck: Supple, JVD not distended Respiratory: Clear to auscultation bilaterally, Normal air movement Cardiovascular: No edema, Regular rate/rhythm, Normal S1 S2 Gastrointestinal: Normal bowel sounds, Soft and benign, Non-distended, No tenderness Musculoskeletal: No swelling Integumentary: No rashes, No cyanosis Neurological: Normal strength at 5/5 x4 extr, Cranial nerves 3-12 intact Laboratory Data at Discharge: WBC 10.30 thou/uL (4.3-10.9) 04/21/23 06:05 Hgb 13.5 g/dL (13.6-17.9) L D 04/21/23 06:05 Hct 38.6 % (39.6-49.0) L 04/21/23 06:05 Plt Count 170 thou/uL (152-406) 04/21/23 06:05 Sodium 137 mEq/L (136-145) 04/21/23 06:05 Potassium 3.3 mEq/L (3.5-5.1) L D 04/21/23 06:05 BUN 26 mg/dL (7-18) H 04/21/23 06:05 Creatinine 1.27 mg/dL (0.70-1.30) 04/21/23 06:05 Glucose 120 mg/dL (74-106) H 04/21/23 06:05 Magnesium 2.1 mg/dL (1.6-2.4) 04/21/23 06:05 Total Bilirubin 0.6 mg/dL (0.2-1.0) 04/20/23 15:20 AST 28 U/L (15-37) 04/20/23 15:20 ALT 36 U/L (16-61) 04/20/23 15:20 Alkaline Phosphatase 69 U/L (45-117) 04/20/23 15:20 Diet: AHA Activity: Ad jodi Followup: Frandy Heath MD [Primary Care Provider] - Evin Johansen [ACTIVE - CAN ADMIT] - (within 2 - 4 weeks) Time spent managing pt's care (in minutes): 27
[2023-04-21 12:23] VITALS: BP 122/71; TEMP 97.3
== END 2023-04-21 14:50 | disposition home or self-care (01) ==
LOC: ER 14:33 → INTOOBSV 17:04 → ERHOLD 17:04 → 2ND 21:00
PROVIDERS: ADMIT Internal Medicine; ATTEND Internal Medicine
DX: K80.20 Calculus of gallbladder without cholecystitis without obstruction (principal); I12.9 Hypertensive chronic kidney disease with stage 1 through stage 4 chronic kidney disease, or unspecified chronic kidney disease; N18.30 Chronic kidney disease, stage 3 unspecified; E78.5 Hyperlipidemia, unspecified; N13.2 Hydronephrosis with renal and ureteral calculous obstruction; D72.829 Elevated white blood cell count, unspecified
CPT/HCPCS: 96365; 87040 ×2; 85025 ×2; 81001; 80048; 36415; 83735; 83605; 80053; 84145; 76377; 74176; 96375; 99285; 96366; J3480; J2543; J7050; J7040; J7030 ×2; J0692; G0378 ×4

== ENCOUNTER 2023-08-26 09:00 | Day surgery (SDC) | payer OTHER ==
[2023-08-24 15:38] LABS: Absolute Basophils 0.1 K/uL (0-0.5); Absolute Eosinophils 0.1 K/uL (0-0.5); Absolute Lymphocytes (CBC) 1.6 K/uL (0.7-4.9); Basophils % 0.8 % (0-1.3); Eosinophils % 1.1 % (0-4.4); Hematocrit 41.4 % (39.6-49.0); Lymphocytes % 17.2 % (15.3-44.8); MCV 89.4 fL (80-100); MPV 8.1 fL (7.6-11.3); Platelets 201 thou/uL (152-406); RBC Red Blood Cell Count 4.62 M/uL (4.33-5.43)
[2023-08-24 15:44] LABS: Protime INR 0.99
[2023-08-24 15:59] LABS: Anion Gap 8.9 mEq/L (5.0-15.0); Potassium 3.9 mEq/L (3.5-5.1)
--- NOTE | 2023-08-24 21:27 | RAD REPORT ---
[facility]24/[facility]23 3:31 pm CLINICAL HISTORY: Pre op pending heart catheterization. Hypertension COMPARISON: Chest Pa And Lat (2 Views) dated 01/19/2023; Chest Pa And Lat (2 Views) dated 06/10/2021; Chest Pa And Lat (2 Views) dated 06/12/2019; Chest Pa And Lat (2 Views) dated 06/17/2018 TECHNIQUE: Portable AP view of the chest. FINDINGS: The lungs are clear. No pneumothorax or effusion. The cardiomediastinal contours are unre markable. IMPRESSION: No acute cardiopulmonary process.
[2023-08-26] MEDS ORDERED: HEPA 1000U/500MLS 2,000 UNIT/1,000 ML BAG IV ONE (09:49)
[2023-08-26] MEDS ORDERED: LIDOCAINE 1% 20 ML MDV ONE (09:49)
[2023-08-26] MEDS ORDERED: VERAPAMIL HCL 10 MG/4 ML VIAL IV ONE (09:49)
[2023-08-26] MEDS ORDERED: FENTANYL CITR 100 MCG/2 ML ONE (09:50)
[2023-08-26] MEDS ORDERED: HEPARIN 10,000 UNIT/10 ML VIAL IV ONE (09:50)
[2023-08-26] MEDS ORDERED: ATROPINE SULF 1 MG/10 ML SYR IV ONE (09:50)
[2023-08-26] MEDS ORDERED: MIDAZOLAM HCL 2 MG/2 ML INJ ONE (09:50)
[2023-08-26] MEDS ORDERED: TICAGRELOR 90 MG TABLET PO ONE (09:50)
[2023-08-26] MEDS ORDERED: HEPARIN 5000 UNIT/ML 1 ML VIAL ONE (09:50)
[2023-08-26] MEDS ORDERED: CLOPIDOGREL 75 MG TABLET ONE (09:51)
[2023-08-26] MEDS ORDERED: ASPIRIN 325 MG TAB ONE (09:51)
[2023-08-26] MEDS: NA CHLORIDE 0.9% 500 ML ONE (11:25)
[2023-08-26 13:54] VITALS: BP 117/69; TEMP 97; O2SAT 98
--- NOTE | 2023-08-26 14:20 | EKG ---
Test Date: 2023-08-24 Test Time: 16:19:00 Towboat Operator: RANDY MEASUREMENT RESULTS: Intervals: Rate: 89 CT: 224 QRSD: 154 QT: 410 QTc: 498 Martelle: P: 54 CT: 224 QRS: -74 T: 49 INTERPRETIVE STATEMENTS: Sinus rhythm with 1st degree AV block with occasional premature ventricular complexes Possible Left atrial enlargement Right bundle branch block Left anterior fascicular block Bifascicular block Septal infarct, age undetermined Abnormal ECG Compared to ECG 06/10/1994 11:16:00 Ventricular premature complex(es) now present First degree AV block now present Left anterior fascicular block now present Bifascicular block now present Myocardial infarct finding now present Electronically Signed On 08-26-23 14:14:18 GLASS BENDER by Abraham Olmstead
== END 2023-08-26 13:27 | disposition home or self-care (01) ==
LOC: CCL 09:00
PROVIDERS: ATTEND Internal Medicine
DX: I25.110 Atherosclerotic heart disease of native coronary artery with unstable angina pectoris (principal); I25.82 Chronic total occlusion of coronary artery; I10 Essential (primary) hypertension; E78.5 Hyperlipidemia, unspecified; I49.3 Ventricular premature depolarization; I42.2 Other hypertrophic cardiomyopathy; Z79.899 Other long term (current) drug therapy
CPT/HCPCS: 93005; 85025; 80048; 36415; 83721; 85610; 85730; 71046; 93458; 76937; C1893; Q9966; J1644; J2001; J0461; J2250; J3010; J7040; 99152; 99153

== ENCOUNTER 2023-10-31 11:33 | Emergency (ER) | payer OTHER ==
[2023-10-31] MEDS ORDERED: MORPHINE 4 MG/ML SYR ONE (11:49)
[2023-10-31] MEDS ORDERED: KETOROLAC 30 MG/ML INJ ONE (11:49)
[2023-10-31] MEDS ORDERED: ONDANSETRON 4 MG/2 ML VIAL ONE (11:49)
[2023-10-31] MEDS ORDERED: NA CHLORIDE 0.9% 1,000 ML ONE (11:50)
[2023-10-31 12:06] LABS: Absolute Basophils 0.1 K/uL (0-0.5); Absolute Lymphocytes (CBC) 0.8 K/uL (0.7-4.9); Absolute Monocytes 0.6 K/uL (0.1-1.3); Absolute Neutrophil 7.2 K/uL (1.8-8.0); Eosinophils % 0.5 % (0-4.4); Hematocrit 38.7 % (39.6-49.0); Hemoglobin 12.5 g/dL (13.6-17.9); Lymphocytes % 8.7 % (15.3-44.8); MCH 28.9 pg (27.0-35.0); MCHC 32.2 g/dL (32.0-36.0); MCV 89.7 fL (80-100); MPV 7.8 fL (7.6-11.3); Monocytes % 7.1 % (3.3-12.3); Neutrophils % 82.7 % (41.7-73.7); Platelets 226 thou/uL (152-406); RBC Red Blood Cell Count 4.31 M/uL (4.33-5.43); Red Cell Distribution Width 16.1 % (12.1-15.2)
[2023-10-31 12:21] LABS: Albumin 3.7 g/dL (3.4-5.0); Anion Gap 9.9 mEq/L (5.0-15.0); Bilirubin Total 0.4 mg/dL (0.2-1.0); Globulin 3.6 g/dL (2.3-3.5); Potassium 3.9 mEq/L (3.5-5.1); Protein, Total 7.3 g/dL (6.4-8.2)
--- NOTE | 2023-10-31 12:30 | RAD REPORT ---
EXAM DESCRIPTION: CT - Abdomen Pelvis Wo Contrast - 10/31/2023 12:05 pm CLINICAL HISTORY: ABD PAIN COMPARISON: Stone Protocol dated 04/20/2023 TECHNIQUE: Thin cut axial CT imaging of the abdomen and pelvis was performed without IV contrast. Mu ltiplanar reformats were generated and reviewed. All CT scans are performed using dose optimization technique as appropriate and may include automated exposure control or mA/KV adjustment according to patient size. FINDINGS: No suspicious findings in the lung bases. The liver, spleen, adrenal glands, and pancreas show no suspicious findings. Gallbladder shows a smal l calculus near the neck. Symmetric renal contour, without suspicious parenchymal findings within limits of noncontrast techniq ue. Left mild hydroureteronephrosis. 6 mm obstructing calculus at the left vesicoureteral junction. O ther nonobstructing calculi on the left largest measuring 1 cm and the left lower pole. Few right racquel al nonobstructing calculi the largest measuring 5 mm at the upper pole. No dilated bowel loops or bowel wall thickening. No free air, free fluid or inflammatory stranding. S mall umbilical hernia containing fat and mild fluid. Left inguinal hernia containing fat. No suspicio us mass or bulky lymphadenopathy. The urinary bladder is without significant finding. Atherosclerotic changes of the abdominal aorta with tortuosity. No suspicious bony findings. IMPRESSION: Mild left hydroureteronephrosis, with 6 mm left vesicoureteral junction obstructing calc ulus. Other bilateral nonobstructing calculi as above. Cholelithiasis. Other incidental findings as above. The findings were communicated to Isaac Page on 10/31/2023 at 12:24 hours.
[2023-10-31 13:06] LABS: Specific Gravity 1.021 (1.005-1.030); Sqamous Epithelial None Seen /HPF (None Seen); Urine Bacteria None Seen /HPF (<20); Urine Bilirubin NEGATIVE (Negative); Urine Blood 3+ (OVER) (Negative); Urine Clarity Turbid (Clear); Urine Color Light-Yellow (Yellow); Urine Culture Reflex Order NOT NEEDED; Urine Glucose NEGATIVE (Negative); Urine Ketones NEGATIVE (Negative); Urine Microscopic Reflex YN ORDER UMIC; Urine Mucus Slight /HPF (None Seen); Urine Nitrite NEGATIVE (Negative); Urine Protein TRACE (Negative); Urine RBC >50 /HPF (None Seen); Urine Urobilinogen Normal (Normal); Urine WBC <5 /HPF (<5)
--- NOTE | 2023-10-31 13:33 | ER ---
Nurse's Notes [facility] Name: Raudel Schaeffer Age: 78 yrs Sex: Male : 1945 Arrival Date: 10/31/2023 Time: 11:33 Bed 19 Private MD: Diagnosis: Calculus of kidney with calculus of ureter Presentation: 10/30 11:43 Chief complaint: Patient states: "I've had kidney stones since March, but no pain, mb9 and have a Lithotripsy planned with Dr. Johansen. I started having left flank pain today and trouble urinating.". Coronavirus screen: At this time, the client does not indicate any symptoms associated with coronavirus-19. Ebola Screen: No symptoms or risks identified at this time. Initial Sepsis Screen: Does the patient meet any 2 criteria? No. Patient's initial sepsis screen is negative. Does the patient have a suspected source of infection? No. Patient's initial sepsis screen is negative. Risk Assessment: Do you want to hurt yourself or someone else? Patient reports no desire to harm self or others. Onset of symptoms was October 31, 2023. 11:43 Acuity: AVI 3 mb9 11:43 Method Of Arrival: Ambulatory mb9 Triage Assessment: 11:46 General: Appears in no apparent distress. Behavior is calm, cooperative. Pain: mb9 Complains of pain in back Pain radiates to left flank Pain currently is 10 out of 10 on a pain scale. Quality of pain is described as throbbing, Pain began suddenly, Is continuous. EENT: No signs and/or symptoms were reported regarding the EENT system. Neuro: Jacob Agitation-Sedation Scale (RASS): 0 - Alert and Calm Level of Consciousness is awake, alert, obeys commands, Oriented to person, place, time, situation, Appropriate for age. Cardiovascular: Patient's skin is warm and dry. Respiratory: Airway is patent Respiratory effort is even, unlabored, Respiratory pattern is regular, symmetrical, Breath sounds are clear. GI: Abdomen is round non-distended, Bowel sounds present X 4 quads. Abd is soft and non tender X 4 quads. : Reports inability to void. Derm: Skin is pink, warm \\T\\ dry. Musculoskeletal: Range of motion: intact in all extremities. Historical: - Allergies: 11:45 No Known Allergies; mb9 - Home Meds: 11:45 atorvastatin 40 mg oral tablet [Active]; Plavix 75 mg Oral tablet [Active]; metoprolol mb9 tartrate 25 mg Oral tablet [Active]; - PMHx: 11:45 Hypertensive disorder; kidney stones; mb9 - PSHx: 11:45 Triple Bypass; mb9 - Immunization history:: Adult Immunizations up to date. - Infectious Disease History:: Denies. - Social history:: Smoking status: Patient denies any tobacco usage or history of. Screenin:47 [facility] ED Fall Risk Assessment (Adult) History of falling in the last 3 months, mb9 including since admission No falls in past 3 months (0 pts) Confusion or Disorientation No (0 pts) Intoxicated or Sedated No (0 pts) Impaired Gait No (0 pts) Mobility Assist Device Used No (0 pt) Altered Elimination No (0 pt) Score/Fall Risk Level 0 - 2 = Low Risk Oriented to surroundings, Maintained a safe environment, Educated pt \\T\\ family on fall prevention, incl call for assistance when getting out of bed. Abuse screen: Denies threats or abuse. Nutritional screening: No deficits noted. Tuberculosis screening: No symptoms or risk factors identified. Assessment: 11:47 Reassessment: see triage assessment. mb9 13:17 Reassessment: Patient appears in no apparent distress at this time. Patient and/or mb9 family updated on plan of care and expected duration. Pain level reassessed. Patient is alert, oriented x 3, equal unlabored respirations, skin warm/dry/pink. Patient states feeling better. Patient states symptoms have improved. 13:39 Reassessment: No changes from previously documented assessment. Patient and/or family mb9 updated on plan of care and expected duration. Pain level reassessed. Patient is alert, oriented x 3, equal unlabored respirations, skin warm/dry/pink. Vital Signs: 11:43 BP 179 / 96; Pulse 78; Resp 18; Temp 98; Pulse Ox 100% on R/A; Weight 89.36 kg; Height mb9 5 ft. 10 in. ; Pain 10/10; 12:41 BP 155 / 75; Pulse 74; Resp 16; Pulse Ox 100% on R/A; mb9 11:43 Body Mass Index 28.27 (89.36 kg, 177.8 cm) mb9 11:43 Pain Scale: Adult mb9 ED Course: 11:36 Patient arrived in ED. mg5 11:36 Sudeep Cedillo MD is Attending Physician. ec2 11:43 Asiya Pickering, DAYAN is Primary Nurse. mb9 11:45 Triage completed. mb9 11:46 Arm band placed on. mb9 11:47 Placed in gown. Bed in low position. Call light in reach. Side rails up X 1. Provided mb9 Education on: press call light if needing anything. Client placed on continuous cardiac and pulse oximetry monitoring. NIBP monitoring applied. environmental monitoring technician on. Door closed. Noise minimized. Warm blanket given. Pillow given. 12:[address] via stretcher. mb9 12:00 CBC with Diff Sent. mb9 12:00 CMP Sent. mb9 12:00 Lipase Sent. mb9 12:00 Initial lab(s) drawn, by me, sent to lab. Inserted saline lock: 22 gauge in right mb9 forearm, using aseptic technique. 12:07 CT Abd/Pelvis - Without Contrast In Process Unspecified. EDMS 13:33 Evin Johansen MD is Referral Physician. ec2 13:39 No provider procedures requiring assistance completed. Patient did not have IV access mb9 during this emergency room visit. Administered Medications: 11:45 Drug: TORadol - Ketorolac IVP 15 mg IVP once Route: IVP; Site: right forearm; mb9 13:17 Follow up: Response: No adverse reaction mb9 11:50 Drug: Ondansetron IVP 4 mg IVP once; over 2 minutes Route: IVP; Site: right forearm; mb9 13:17 Follow up: Response: No adverse reaction mb9 11:59 Drug: NS 0.9% IV 1000 ml IV at 1 bolus Per protocol; 1000 mL bolus Route: IV; Rate: 1 mb9 bolus; Site: right forearm; 13:26 Follow up: Response: No adverse reaction; IV Status: Completed infusion mb9 12:00 Drug: morphine IVP or IV 4 mg IVP once over 4 mins Route: IVP; Infused Over: 4 mins; mb9 Site: right forearm; 13:17 Follow up: Response: No adverse reaction mb9 Medication: 11:47 VIS not applicable for this client. mb9 Outcome: 13:33 Discharge ordered by . ec2 13:39 Discharged to home ambulatory, jesus 13:39 Condition: stable 13:39 Discharge instructions given to patient, Instructed on discharge instructions, follow up and referral plans. Demonstrated understanding of instructions, follow-up care, medications, Prescriptions given X 1, 13:40 Patient left the ED. mb9 Signatures: Dispatcher [employer] Asiya Betancur RN RN mb9 [facility] Sudeep Cedillo MD MD ec2
--- NOTE | 2023-10-31 13:33 | EDPHYS ---
Physician Documentation [facility] Name: Raudel Schaeffer Age: 78 yrs Sex: Male : 1945 Arrival Date: 10/31/2023 Time: 11:33 Bed 19 Private MD: ED Physician Sudeep Cedillo HPI: 10/30 11:46 This 78 yrs old Male presents to ER via Ambulatory with complaints of ec2 Possible Kidney Stone. 11:46 Patient with history of kidney stones arrives today for evaluation of left flank pain. ec2 Patient complaining of left flank pain ongoing since earlier this morning. Patient reports he has a history of stones, recently diagnosed in March. No fevers or chills, no urinary complaints. Follows with Dr. Johansen.. Historical: - Allergies: 11:45 No Known Allergies; mb9 - Home Meds: 11:45 atorvastatin 40 mg oral tablet [Active]; Plavix 75 mg Oral tablet [Active]; metoprolol mb9 tartrate 25 mg Oral tablet [Active]; - PMHx: 11:45 Hypertensive disorder; kidney stones; mb9 - PSHx: 11:45 Triple Bypass; mb9 - Immunization history:: Adult Immunizations up to date. - Infectious Disease History:: Denies. - Social history:: Smoking status: Patient denies any tobacco usage or history of. ROS: 11:46 Constitutional: as per hpi ec2 Exam: 11:46 Constitutional: GEN: NAD Head: atraumatic Eyes: EOMI Ears: External ears are ec2 normal. CV: regular rate LUNGS: no respiratory distress ABD: non-distended, soft, nontender, no guarding, not rigid, left flank with slight CVA TTP. SKIN: no evidence of rashes MSK: no evidence of trauma NEURO: moves all extremities equally Vital Signs: 11:43 BP 179 / 96; Pulse 78; Resp 18; Temp 98; Pulse Ox 100% on R/A; Weight 89.36 kg; Height mb9 5 ft. 10 in. ; Pain 10/10; 12:41 BP 155 / 75; Pulse 74; Resp 16; Pulse Ox 100% on R/A; mb9 11:43 Body Mass Index 28.27 (89.36 kg, 177.8 cm) mb9 11:43 Pain Scale: Adult mb9 MDM: 11:42 Patient medically screened. ec2 11:46 Data reviewed: vital signs. ED course: Patient arrives today for evaluation of left ec2 flank pain. Examination remarkable for abdominal findings as above. Will obtain CT imaging, treat the patient's symptoms and reassess. Evaluating for ureteral stone, UTI, diverticulitis.. 12:13 ED course: CBC shows slight anemia.. ec2 12:43 ED course: Metabolic profile with appropriate electrolytes, lipase within normal ec2 ranges. CT imaging shows 6 mm left UVJ stone. Mild hydronephrosis noted. . 13:32 ED course: Urine noninfectious appearing. Will discharge home, have the patient ec2 follow-up with urology . 10/30 11:46 Order name: CBC with Diff; Complete Time: 12:13 ec2 10/30 11:46 Order name: CMP; Complete Time: 12:42 ec2 10/30 11:46 Order name: Lipase; Complete Time: 12:42 ec2 10/30 11:46 Order name: Urinalysis w/ reflexes; Complete Time: 13:32 ec2 10/30 11:46 Order name: CT Abd/Pelvis - Without Contrast; Complete Time: 13:00 ec2 10/30 11:46 Order name: IV Saline Lock; Complete Time: 11:59 ec2 10/30 11:46 Order name: Labs collected and sent; Complete Time: 11:59 ec2 Administered Medications: 11:45 Drug: TORadol - Ketorolac IVP 15 mg IVP once Route: IVP; Site: right forearm; mb9 13:17 Follow up: Response: No adverse reaction mb9 11:50 Drug: Ondansetron IVP 4 mg IVP once; over 2 minutes Route: IVP; Site: right forearm; mb9 13:17 Follow up: Response: No adverse reaction mb9 11:59 Drug: NS 0.9% IV 1000 ml IV at 1 bolus Per protocol; 1000 mL bolus Route: IV; Rate: 1 mb9 bolus; Site: right forearm; 13:26 Follow up: Response: No adverse reaction; IV Status: Completed infusion mb9 12:00 Drug: morphine IVP or IV 4 mg IVP once over 4 mins Route: IVP; Infused Over: 4 mins; mb9 Site: right forearm; 13:17 Follow up: Response: No adverse reaction mb9 Disposition Summary: 10/31/23 13:33 Discharge Ordered Notes: Location: Home ec2 Condition: Stable ec2 Diagnosis - Calculus of kidney with calculus of ureter ec2 Followup: ec2 - With: Evin Johansen MD - When: - Reason: Recheck today's complaints Discharge Instructions: - Discharge Summary Sheet ec2 - Kidney Stones, [id number] ec2 Forms: - Medication Reconciliation Form ec2 - Antibiotic Education ec2 - Prescription Opioid Use ec2 - Patient Portal Instructions ec2 - Leadership Thank You Letter ec2 Prescriptions: - acetaminophen-codeine 300-30 mg Oral tablet - take 1 tablet ORAL route 3 times per day; 15 tablet; Refills: 0, Product ec2 Selection Permitted Signatures: Dispatcher [employer] Asiya Betancur RN RN mb9 Sudeep Cedillo MD MD ec2
[2023-10-31 13:57] VITALS: BP 155/75; TEMP 98; O2SAT 100
== END 2023-10-31 13:40 | disposition home or self-care (01) ==
LOC: ER 11:33
DX: N20.2 Calculus of kidney with calculus of ureter (principal); Z87.442 Personal history of urinary calculi; Z95.1 Presence of aortocoronary bypass graft; Z79.01 Long term (current) use of anticoagulants
CPT/HCPCS: 96361; 85025; 81001; 36415; 83690; 80053; 74176; 96375; 96374; 99285; J2405; J7030

== ENCOUNTER 2023-11-16 08:56 | Day surgery (SDC) | payer OTHER ==
[2023-11-10 15:27] LABS: Absolute Basophils 0.1 K/uL (0-0.5); Absolute Eosinophils 0.1 K/uL (0-0.5); Absolute Lymphocytes (CBC) 1.3 K/uL (0.7-4.9); Absolute Monocytes 0.6 K/uL (0.1-1.3); Absolute Neutrophil 4.8 K/uL (1.8-8.0); Basophils % 1.1 % (0-1.3); Eosinophils % 1.4 % (0-4.4); Hematocrit 40.2 % (39.6-49.0); Lymphocytes % 18.6 % (15.3-44.8); MCHC 32.4 g/dL (32.0-36.0); MCV 89.6 fL (80-100); MPV 8.1 fL (7.6-11.3); Neutrophils % 69.9 % (41.7-73.7); Platelets 238 thou/uL (152-406); RBC Red Blood Cell Count 4.49 M/uL (4.33-5.43); Red Cell Distribution Width 16.3 % (12.1-15.2)
[2023-11-10 15:32] LABS: PT Prothrombin Time 11.1 SECONDS (9.5-12.5); PTT, Activated Partial Thromb 31.7 SECONDS (24.3-36.9); Protime INR 1.01
[2023-11-10 15:44] LABS: Anion Gap 5.9 mEq/L (5.0-15.0); Potassium 3.9 mEq/L (3.5-5.1)
[2023-11-16] MEDS: Ringers Lactate 1,000 ML IV ONE (09:33)
[2023-11-16] MEDS ORDERED: LIDOCAINE 1% MPF 5 ML VIAL ONE (09:38)
[2023-11-16] MEDS ORDERED: ROCURONIUM 50 MG/5 ML VIAL IV ONE (09:38)
[2023-11-16] MEDS ORDERED: dexAMETHasone 10 MG/ML VIAL ONE (09:38)
[2023-11-16] MEDS ORDERED: propofoL 200 MG/20 ML VIAL IV ONE (09:38)
[2023-11-16] MEDS ORDERED: ONDANSETRON 4 MG/2 ML VIAL ONE (09:38)
[2023-11-16] MEDS ORDERED: FENTANYL CITR 100 MCG/2 ML ONE (09:38)
[2023-11-16] MEDS ORDERED: SUGAMMADEX SODIUM 200 MG/2 ML VIAL IV ONE (10:26)
[2023-11-16] MEDS: CEFAZOLIN SODIUM 2 GM/VIAL ONE (10:38)
[2023-11-16] MEDS ORDERED: Phenylephrine HCl 10 MG/ML 1 ML VIAL ONE (10:53)
[2023-11-16] MEDS ORDERED: EPHEDRINE SULF 50 MG/ML VIAL ONE (10:59)
[2023-11-16] MEDS ORDERED: CODEINE 30MG/APAP 300MG TAB PO PRN (12:12)
--- NOTE | 2023-11-16 12:27 | RAD REPORT ---
EXAM DESCRIPTION: RAD - Urethrocystogrphy Retrograde - 11/16/2023 11:35 am CLINICAL HISTORY: LT STENT W RETROGRADE COMPARISON: None available. FINDINGS: Eight Images were sent to PACS, documenting fluoroscopy use during left cystourethrogram a nd stenting procedure. No radiologist was available for the procedure, nor will any image interpretat ion he provided. Please refer to the procedural report for additional details. Fluoroscopy time: 10 seconds. IMPRESSION: Documentation of fluoroscopy utilization as above.
[2023-11-16 13:06] VITALS: O2SAT 99
[2023-11-16] MEDS ORDERED: PHENAZOPYRIDINE 100MG TAB PO ONE (13:17)
[2023-11-16] MEDS: PHENAZOPYRIDINE 100MG TAB PO ONE (13:17)
[2023-11-16 14:59] VITALS: BP 149/78; TEMP 97
--- NOTE | 2023-11-17 08:54 | OP ---
Surgeon: KENDAL DUNN Preoperative Diagnosis: Left nephroureterolithiasis. Postoperative Diagnosis: Left nephroureterolithiasis. Principal Procedures: 1.Cystoscopy. 2.Left retrograde pyelography. 3.Left ureteroscopy with laser lithotripsy and stone basketing. 4.Left ureteral stent placement. 5.Left ESWL/extracorporeal shock wave lithotripsy. Indication For Procedure: This is an 78-year-old gentleman with underlying CAD, on aspirin and Plavi x, who underwent extensive cardiac preoperative evaluation and management before he was ultimately cl eared for surgical intervention. During all of that time, over a year had elapsed before he was kapil red, and after being cleared medically for surgery, he then ended up in the emergency department with a 6 mm left ureteral calculus obstructing. He presents today for management of the 2 large left racquel al calculi, each measuring 10 mm to 12 mm, and also, the 6 mm ureteral calculus. Procedure In Detail: The patient was consented in the preoperative holding area before being transfe rred to the operative suite, where general anesthesia was induced. He was given Ancef 2 g IV antimic robial prophylaxis, and pneumo boots were provided for DVT prophylaxis. He was placed in the lithoto my position, padded, and secured to the table appropriately. His genitalia were prepped with Hibicle ns, and he was draped in standard fashion. The case was begun using a 22-Russian rigid cystoscope to traverse the urethra and into the bladder with ease. The bladder was decompressed of fluid and urine and surveyed in its entirety after being refilled with sterile saline. No papillary mucosal lesions , foreign bodies were noted, there was some stone dust floating within the bladder. The ureteral joy fices were orthotopic in location, and I cannulated the left ureteral orifice using the tip of the 5- Russian ureteral access catheter. I then performed a retrograde pyelography study. LEFT RETROGRADE PYELOGRAPHY: Using a 70:30 mixture of Omnipaque and saline, contrast was injected vi a the lumen of the 5-Russian ureteral access catheter and did propagate up the distal into the mid and proximal ureter before ultimately entering the renal pelvis and calices, which were generally sharp without any significant blunting or caliectasis. There was, however, a filling defect in the distal ureter along with some distal ureteral nephrosis, consistent with obstruction from the stone; so I pa ssed a Sensor wire via the 5-Russian ureteral access catheter, coiling it within the upper pole calyx and utilized an 8/10 dilator over that wire to dilate the ureteral orifice. I then utilized a semi-r igid ureteroscope to perform semi-rigid ureteroscopy. LEFT SEMI-RIGID URETEROSCOPY: Using the semi-rigid ureteroscope and pressurized saline, I was able t o navigate the scope under direct vision via the urethra into his bladder and alongside the Sensor wi re into his ureteral orifice. Within 1 cm or 2 of entry into the ureteral orifice, I encountered a v tesfaye dark and hard-appearing calculus and utilized a basket to grab that calculus and attempt to deliv er it via the orifice. Unfortunately, the orifice was a bit stenotic and the stone a bit too large, and so I was unable to extract it; so I utilized a 200 nm laser fiber and power setting of 0.8 joules and 10 Hz and began to fragment the stone within the basket, releasing smaller pieces that ultimatel y were delivered directly out of the orifice. I then continued fragmentation of the remaining piece of the calculus that was still stuck within the basket within the orifice until the entirety of the s tone was mostly removed except for a small, about 3 mm fragment. In this case, I then placed the ure teroscope all the way into the distal ureter and found that last fragment and utilized the laser fibe r to completely fragment that until dust smaller than 1 mm in maximal diameter. I then back-loaded t cystoscope over the safety wire after removing the ureteroscope, and I passed a 6-Russian by 28 cm double-J ureteral stent over the Sensor safety wire, coiling it within the upper pole of his kidney. An additional coil was seen formed cystoscopically within his bladder. I then decompressed his blad adonay of fluid and urine before removing the cystoscope. The [facility] before being transferred to the shockwave lithotripsy room and bed. There, he was positioned in t he left right and anterior-posterior positioning, and a water bath was placed beneath his flank. Two large stones were noted mostly in the lower pole, and we targeted the superior most of the 2 stones and delivered about 1300 shocks to that, noting only partial fragmentation of the stone. We then tur shar our attention to the lower of the 2 stones and again, delivered an additional 1300 shocks to that , ultimately seeing a greater degree of fragmentation and also displacement of that stone more proxim al to the higher stone initially shocked. We then delivered the last 400 shocks, for a total of 3000 shocks delivered to the massive stone burden remnant now sitting in close proximity and within the f ocal zone of the shockwave lithotripsy. Of note, a maximum power of 7 was delivered after a 2-minute pause was given after about 200 shocks and that power was only achieved slowly over the course of 50 0 to 1000 shocks initially delivered. The patient was then transferred to a stretcher and extubated, and then he was transferred to the recovery room in good condition. Complications: None. Discharge Disposition: He should plan followup in the Urology Clinic within the next 3 to 6 weeks an d obtain a KUB within days of the followup appointment. If successful complete fragmentation of the stones has occurred, we will remove the stent on that appointment. If incomplete fragmentation and s ignificant stone burden remnant, subsequent followup ureteroscopy with laser lithotripsy involving th e kidney will be required. SINDY/YANNICK Voice ID: [id number] Report ID: [id number]
== END 2023-11-16 14:17 | disposition home or self-care (01) ==
LOC: OR 08:56
PROVIDERS: ATTEND Urology
PROC: 0TFBXZZ Fragmentation in Bladder, External Approach (ICD-10-PCS; 2023-11-16)
PROC: 0TC78ZZ Extirpation of Matter from Left Ureter, Via Natural or Artificial Opening Endoscopic (ICD-10-PCS; principal; 2023-11-16 11:45)
PROC: 0T778DZ Dilation of Left Ureter with Intraluminal Device, Via Natural or Artificial Opening Endoscopic (ICD-10-PCS; 2023-11-16 11:45)
DX: N20.2 Calculus of kidney with calculus of ureter (principal); I10 Essential (primary) hypertension; E78.00 Pure hypercholesterolemia, unspecified
CPT/HCPCS: 52356; 85025; 87086; 80048; 36415; 85610; 88300; 85730; 74450; 51610; 50590; J2704; J2001; J2371; J3010; J1100; J2405; J7120; 87088